=== PATIENT | female | born 1980 | race Caucasian/White ===

== ENCOUNTER 2019-12-12 21:55 | Inpatient (IN) ==
[2019-12-12] MEDS ORDERED: PENICILLIN G POTASSIUM 3 MU in DEXTROSE 5% 100 ML IV PRN (22:14)
[2019-12-12] MEDS ORDERED: PENICILLIN G POTASSIUM 6 MU in DEXTROSE 5% 250 ML IV STA (22:14)
[2019-12-12] MEDS ORDERED: OXYTOCIN 30 UNITS/500 ML BAG IV PRN (22:14)
[2019-12-12] MEDS: LACTATED RINGER'S 1,000 ML IV PRN (22:40)
[2019-12-12 22:47] LABS: Hematocrit (blood only) 31.4 % (37-47); Hemoglobin 10.8 g/dL (12.0-16.0); Mean Corpuscular Hemoglobin 29.7 pg (25-34); Mean Corpuscular Volume 86.3 fL (80-100); Mean Platelet Volume 9.9 fL (7.4-10.4); Platelet Count 204 K/uL (130-400); RDW Coefficient of Variation 13.1 % (11.5-14.5); RDW Standard Deviation 41.6 fL (36.4-46.3); Red Blood Count 3.64 M/uL (4.2-5.4); White Blood Count 7.71 K/uL (4.8-10.8)
[2019-12-12 22:49] LABS: Mean Corpuscular Hgb Conc 34.4 g/dL (32-36)
[2019-12-12] MEDS ORDERED: miSOPROStoL 50 MCG TAB PO ONE (22:55)
[2019-12-12] MEDS ORDERED: ePHEDrine sulfate 50 MG/ML AMP ONE (23:33)
[2019-12-12] MEDS ORDERED: fentaNYL 2MCG/ML ROPIV 1.25MG/ML 100 ML BAG EPI ONE (23:33)
[2019-12-12] MEDS ORDERED: BUPIVACAINE 0.25% 30 ML VIAL ONE (23:33)
[2019-12-12] MEDS ORDERED: fentaNYL citrate 100 MCG/2 ML VIAL ONE (23:33)
[2019-12-13] MEDS ORDERED: NALOXONE HCL 1 MG in SODIUM CHLORIDE 0.9% 1000ML 1,000 ML IV PRN (00:06)
[2019-12-13] MEDS ORDERED: NALOXONE HCL 0.4 MG/1 ML VIAL/CARP IV PRN (00:06)
[2019-12-13] MEDS ORDERED: ePHEDrine sulfate 50 MG/ML AMP IV PRN (00:06)
[2019-12-13] MEDS ORDERED: DiphenhydrAMINE HCL 50 MG/ML VIAL IV PRN (00:06)
[2019-12-13] MEDS ORDERED: ONDANSETRON INJ 2 MG/ML 2 ML VIAL IV PRN (00:06)
[2019-12-13] MEDS ORDERED: fentaNYL 2MCG/ML ROPIV 1.25MG/ML 100 ML BAG EPI PRN (00:06)
--- NOTE | 2019-12-13 00:09 | Anesthesiology Consultation ---
Date of Service December 13, 2019 Covid 19 negative on 12/01/19. Assessment & Plan Chart Review Chart Review: Patient NOT seen in Pre Admission Testing and Acceptable Risk for Labor Epidural Consults Requested none ASA ASA2 Proposed Anesthesia Anesthesia Type: Labor Epidural and CSE Risk / Benefits Reviewed With: PT / POA / Parent / Guardian, Accepts Plan and Informed Consent Obtained History Height/Weight Height: 5 ft 9 in Weight: 83.461 kg Allergies Allergy/AdvReac Type Severity Reaction Status Date / Time acetaminophen Allergy Mild VOMITING Verified 12/15/15 09:25 propoxyphene Allergy Mild Rash Verified 12/12/19 22:14 quetiapine Allergy Mild DIFF Verified 10/23/13 08:55 BREATHING venlafaxine [From Effexor] Allergy Rash Verified 12/12/19 22:14 Medications Home Medications Medication Instructions Recorded Confirmed Last Taken Multivit/Min/Iron/Fol Ac/Pren 1 tab PO DAILY #0 tab 10/21/13 12/12/19 12/12/19 ( Vitamin) BUPRENORPHINE HCL (SUBUTEX) 8 mg SUBLINGUAL BID #1 12/17/15 12/12/19 12/12/19 16:30 biotin 1 mg PO DAILY 12/12/19 12/12/19 12/12/19 omega-3 fatty acids [Fish Oil] 500 mg PO DAILY 12/12/19 12/12/19 12/12/19 Active Medications Generic Name Dose Route Start Last Admin Trade Name Freq PRN Reason Stop Dose Admin Lactated Ringer's 1,000 mls @ 125 mls/hr 12/12/19 22:14 12/12/19 23:30 Lr IV 12/14/19 22:13 999 mls/hr .Q8H PRN Infusion L&D Protocol Protocol NPO Date Last Intake of Fluids: 12/12/19 Time Last Intake of Fluids: 23:00 Date Last Intake of Solids: 12/12/19 Time Last Intake of Solids: 10:00 Past Medical History Medical History Spontaneous vaginal delivery 07/2001, 09/2002, 09/2013, 10/2014, 11/2015 Exercise / Class Metabolic Activity II 4-5 Yardwork/Stairs/Walk up hill Past Surgical History Surgical History H/O dilation and curettage 2007, 2008 Past Anesthesia History No Hx of Anesthesia Complications and No Family Hx of Anesthesia Complications History of PONV No Hx of PONV and No Hx of Motion Sickness Social History Smoking Status: Former smoker Hx Alcohol Use: No Hx Substance Use: Yes substance use type: other Substance Use Type Other:: subutex Review of Systems no chest pain or sob Physical Exam Vital Signs Last Vital Signs Temp 36.7 C 12/12/19 22:17 Pulse 87 12/13/19 00:04 Resp 18 12/12/19 22:17 BP 120/73 12/12/19 22:57 Pulse Ox 100 12/13/19 00:04 ENMT Mouth: no TMJ abnormality Thyromental Distance: > or= 3.5 Finger Breadths Mallampati Class: II Neck normal visual inspection Respiratory normal respiratory effort Auscultation: lungs clear to auscultation bilaterally Cardiovascular Rate/Rhythm: regular rate and regular rhythm Musculoskeletal Spine: normal cervical ROM Neurologic moves all extremities Psychiatric Orientation: alert and oriented x 3 Testing Laboratory Results 12/12/19 22:35
[2019-12-13] MEDS: LACTATED RINGER'S 1,000 ML IV PRN (00:30)
[2019-12-13] MEDS ORDERED: OXYTOCIN 30 UNITS/500 ML BAG IV PRN (03:04)
[2019-12-13] MEDS ORDERED: OXYCODONE/ACETAMINOPHEN 5mg/325mg TAB PO PRN (03:04)
[2019-12-13] MEDS ORDERED: DIPHTHERIA/TETANUS/PERTUSSIS 0.5 ML SYR/VIAL IM ONE (03:04)
[2019-12-13] MEDS ORDERED: BENZOCAINE 20% AER SPR 82.5 GM CAN EXT PRN (03:04)
[2019-12-13] MEDS ORDERED: ACETAMINOPHEN 325 MG TAB PO PRN (03:04)
[2019-12-13] MEDS ORDERED: SUPERCREAM 0.870% 15 GM JAR EXT PRN (03:04)
[2019-12-13] MEDS ORDERED: ACETAMINOPHEN W/CODEINE #3 1 TAB PO PRN (03:04)
[2019-12-13] MEDS ORDERED: miSOPROStoL 200 MCG TAB PR ONE (03:04)
[2019-12-13] MEDS ORDERED: HYDROCORTISONE ACETATE 25 MG SUPP PR PRN (03:04)
[2019-12-13] MEDS ORDERED: bisacodyL 10 MG SUPP PR PRN (03:04)
--- NOTE | 2019-12-13 03:36 | Operative Report (OR) ---
DATE OF OPERATION: 12/13/2019 DELIVERY NOTE She is a 10, para 7, blood type is O positive, group B strep positive. Due date is 12/12/2019. She was admitted with tino rupture of membranes. After she was admitted, she was started on prophylactic antibiotics for group B strep, was also given 50 mcg of Cytotec p.o. She went into labor with 1 dose of Cytotec receiving epidural for pain relief. She then went to an anterior lip. I held back the lip. She pushed the head beyond the lip and then with about 4 pushes, delivered a live female via direct occiput anterior position over an intact perineum. was suctioned through the mouth and the nose. There was a nuchal cord which was reduced over the head. Body was delivered without difficulty. Cord was allowed to pulse for 1 minute, then clamped and cut by the father. Cord blood was taken. With IV Pitocin running, the placenta was removed intact. Following this, we added 800 mcg of rectal Cytotec to secure hemostasis in this patient that had had 7 children. Estimated blood loss was only 100 mL. Perineum was intact without any lacerations and the patient tolerated the procedure well. Apgars were deferred to the nurses. I attest to the content of the Intraoperative Record and any orders documented therein. Any exception s are noted below.
[2019-12-13] MEDS: FERROUS SULFATE 325 MG TAB PO SCH (09:04)
[2019-12-13] MEDS: DOCUSATE SODIUM 100 MG CAP PO SCH ×2 (09:04→20:16)
[2019-12-13] MEDS: IBUPROFEN 600 MG TAB PO PRN ×2 (09:04→17:21)
[2019-12-13] MEDS: PRENATAL VITAMIN 1 TAB PO SCH (09:04)
[2019-12-13] MEDS: buprenorphine HCL 8 MG SUBL SL SCH ×2 (09:16→17:21)
--- NOTE | 2019-12-13 18:09 | Anesthesiology Progress Note ---
Date of Service December 13, 2019 Anesthesia Post Procedure Vital Signs Vital Signs: Temp Pulse Pulse Resp BP BP BP 12/13/19 17:15 36.5 C 75 18 117/76 12/13/19 15:20 36.5 C 77 16 106/64 12/13/19 13:15 36.5 C 78 21 122/77 12/13/19 07:45 36.7 C 79 19 105/69 12/13/19 05:20 36.8 C 18 123/65 12/13/19 05:03 99 H 123/65 12/13/19 04:48 85 119/59 L 12/13/19 04:33 83 104/55 L 12/13/19 04:18 86 108/57 L 12/13/19 04:03 83 111/70 12/13/19 04:00 36.8 C 18 12/13/19 03:53 81 108/57 L 12/13/19 03:18 89 129/63 12/13/19 03:03 84 109/59 L 12/13/19 02:59 92 H 12/13/19 02:54 88 12/13/19 02:51 18 12/13/19 02:49 111 H 12/13/19 02:48 92 H 12/13/19 02:44 89 12/13/19 02:39 106 H 12/13/19 02:34 100 H 12/13/19 02:32 102 H 111/57 L 12/13/19 02:30 18 12/13/19 02:29 112 H 12/13/19 02:24 88 12/13/19 02:19 76 12/13/19 02:17 78 106/61 12/13/19 02:14 78 12/13/19 02:09 78 12/13/19 02:04 80 12/13/19 02:02 74 100/58 L 12/13/19 02:00 36.8 C 16 12/13/19 01:59 88 12/13/19 01:54 71 12/13/19 01:49 68 12/13/19 01:48 69 89/52 L 12/13/19 01:44 70 12/13/19 01:40 81 121/56 L 12/13/19 01:39 81 12/13/19 01:37 67 12/13/19 01:34 65 12/13/19 01:33 65 80/48 L 12/13/19 01:32 65 12/13/19 01:30 16 12/13/19 01:29 67 12/13/19 01:25 67 12/13/19 01:24 69 12/13/19 01:22 72 85/53 L 12/13/19 01:19 74 12/13/19 01:18 69 85/48 L 12/13/19 01:14 67 12/13/19 01:09 68 12/13/19 01:04 75 12/13/19 01:01 78 96/55 L 12/13/19 01:00 16 12/13/19 00:59 72 90/57 L 12/13/19 00:57 73 96/57 L 12/13/19 00:55 76 91/52 L 12/13/19 00:54 77 12/13/19 00:53 75 92/56 L 12/13/19 00:51 76 91/55 L 12/13/19 00:49 73 93/51 L 12/13/19 00:47 77 97/54 L 12/13/19 00:45 77 18 101/56 L 12/13/19 00:44 83 12/13/19 00:43 75 102/58 L 12/13/19 00:41 93 H 104/68 12/13/19 00:39 95 H 128/71 12/13/19 00:37 86 96/55 L 12/13/19 00:35 77 98/52 L 12/13/19 00:33 83 107/55 L 12/13/19 00:31 88 101/56 L 12/13/19 00:29 86 12/13/19 00:27 160 H 127/70 12/13/19 00:25 94 H 120/82 12/13/19 00:24 97 H 12/13/19 00:23 100 H 117/78 12/13/19 00:21 219 H 12/13/19 00:19 124 H 12/13/19 00:16 106 H 12/13/19 00:14 97 H 12/13/19 00:11 93 H 12/13/19 00:09 84 12/13/19 00:04 87 12/13/19 00:00 36.7 C 18 12/12/19 23:59 73 08/16/20 23:54 73 12/12/19 23:49 80 12/12/19 23:44 76 12/12/19 22:57 75 120/73 12/12/19 22:17 36.7 C 18 116/71 12/12/19 21:59 36.7 C 18 116/71 Pulse Ox 12/13/19 17:15 12/13/19 15:20 98 12/13/19 13:15 98 12/13/19 07:45 96 12/13/19 05:20 12/13/19 05:03 12/13/19 04:48 12/13/19 04:33 12/13/19 04:18 12/13/19 04:03 12/13/19 04:00 12/13/19 03:53 12/13/19 03:18 12/13/19 03:03 12/13/19 02:59 99 12/13/19 02:54 100 12/13/19 02:51 12/13/19 02:49 93 12/13/19 02:48 92 12/13/19 02:44 100 12/13/19 02:39 99 12/13/19 02:34 100 12/13/19 02:32 12/13/19 02:30 12/13/19 02:29 100 12/13/19 02:24 100 12/13/19 02:19 99 12/13/19 02:17 12/13/19 02:14 97 12/13/19 02:09 98 12/13/19 02:04 98 12/13/19 02:02 12/13/19 02:00 12/13/19 01:59 100 12/13/19 01:54 96 12/13/19 01:49 96 12/13/19 01:48 12/13/19 01:44 97 12/13/19 01:40 12/13/19 01:39 98 12/13/19 01:37 94 12/13/19 01:34 95 12/13/19 01:33 12/13/19 01:32 94 12/13/19 01:30 12/13/19 01:29 95 12/13/19 01:25 94 12/13/19 01:24 96 12/13/19 01:22 12/13/19 01:19 97 08/17/20 01:18 12/13/19 01:14 95 12/13/19 01:09 95 12/13/19 01:04 97 12/13/19 01:01 12/13/19 01:00 12/13/19 00:59 97 12/13/19 00:57 12/13/19 00:55 12/13/19 00:54 97 12/13/19 00:53 12/13/19 00:51 12/13/19 00:49 98 12/13/19 00:47 12/13/19 00:45 12/13/19 00:44 99 12/13/19 00:43 12/13/19 00:41 12/13/19 00:39 99 12/13/19 00:37 12/13/19 00:35 98 12/13/19 00:33 12/13/19 00:31 12/13/19 00:29 100 12/13/19 00:27 12/13/19 00:25 12/13/19 00:24 100 12/13/19 00:23 12/13/19 00:21 84 L 12/13/19 00:19 75 L 12/13/19 00:16 88 L 12/13/19 00:14 99 12/13/19 00:11 94 12/13/19 00:09 100 12/13/19 00:04 100 12/13/19 00:00 12/12/19 23:59 100 12/12/19 23:54 100 12/12/19 23:49 100 12/12/19 23:44 100 12/12/19 22:57 12/12/19 22:17 12/12/19 21:59 Pain Intensity Lower Medial Back: Pain Intensity: 5 Transfer of Care Handoff Completed per policy Notes Mental Status: alert / awake / arousable and participated in evaluation Patient Amnestic to Procedure: Yes Nausea / Vomiting: adequately controlled Pain: adequately controlled Airway Patency, RR, SpO2: stable & adequate BP & HR: stable & adequate Hydration State: stable & adequate Anesthetic Complications: no major complications apparent and Pt Satisfied with anesthetic care
[2019-12-14 05:51] LABS: Hematocrit (blood only) 30.3 % (37-47); Hemoglobin 10.8 g/dL (12.0-16.0); Mean Corpuscular Hgb Conc 35.6 g/dL (32-36); Mean Corpuscular Volume 87.1 fL (80-100); Mean Platelet Volume 10.2 fL (7.4-10.4); Platelet Count 207 K/uL (130-400); RDW Coefficient of Variation 13.2 % (11.5-14.5); RDW Standard Deviation 42.1 fL (36.4-46.3); Red Blood Count 3.48 M/uL (4.2-5.4); White Blood Count 5.67 K/uL (4.8-10.8)
[2019-12-14] MEDS: IBUPROFEN 600 MG TAB PO PRN ×4 (06:48→20:41)
[2019-12-14] MEDS: buprenorphine HCL 8 MG SUBL SL SCH ×2 (08:11→16:13)
[2019-12-14] MEDS: DOCUSATE SODIUM 100 MG CAP PO SCH ×2 (08:11→20:41)
[2019-12-14] MEDS: FERROUS SULFATE 325 MG TAB PO SCH (08:11)
[2019-12-14] MEDS: PRENATAL VITAMIN 1 TAB PO SCH (08:11)
--- NOTE | 2019-12-14 08:49 | Obstetrical Progress Note ---
Date of Service December 14, 2019 Assessment & Plan (1) Normal course: PPD #1 pt doing well anticipate disch tomorrow Subjective Ambulation: ambulating normally Voiding: no voiding problems Passing Gas:: Yes Diet Tolerance:: regular diet Lochia:: Small Feeding Type:: breast feeding Review of Systems All systems reviewed & are unremarkable except as noted in HPI & below Physical Exam Constitutional WD/WN, vitals as above well developed and well nourished Eyes PERRL, conjunctivae normal, anicteric sclerae Neck trachea midline, no thyromegaly Respiratory normal respiratory effort, lungs clear to auscultation Auscultation: no crackles, no rales and no wheezes Cardiovascular RRR, no murmur, no edema Gastrointestinal (Abdomen) normal bowel sounds, soft, nontender, no hepatosplenomegaly Uterus is below umbilicus Musculoskeletal no cyanosis or clubbing, extremities motor strength 5/5 Skin no rashes, warm and dry Neurologic patellar DTR's 2+ bilat, sensation intact Psychiatric A+Ox3, euthymic affect Genitourinary normal external appearance Results & Data ([facility]) Vital Signs (Past 12 Hours) Vital Signs Temp Pulse Resp BP Pulse Ox 12/13/19 23:00 36.7 C 69 20 123/78 100
[2019-12-14] MEDS ORDERED: bisacodyL 5 MG TABEC PO SCH (20:00)
[2019-12-15] MEDS: IBUPROFEN 600 MG TAB PO PRN ×3 (00:27→12:23)
[2019-12-15 06:39] LABS: Hematocrit (blood only) 31.8 % (37-47); Hemoglobin 10.9 g/dL (12.0-16.0)
[2019-12-15] MEDS: buprenorphine HCL 8 MG SUBL SL SCH (08:31)
[2019-12-15] MEDS: DOCUSATE SODIUM 100 MG CAP PO SCH (08:31)
[2019-12-15] MEDS: PRENATAL VITAMIN 1 TAB PO SCH (08:32)
[2019-12-15] MEDS: FERROUS SULFATE 325 MG TAB PO SCH (08:32)
--- NOTE | 2019-12-15 12:43 | Obstetrical Progress Note ---
Date of Service December 15, 2019 Assessment & Plan Admission and Anticipated Discharge Date Admission Date: December 12, 2019 Subjective Patient is seen and examined. She feels well, no complaints. Ambulating without dizziness Voiding without difficulty Tolerating regular diet with out N&V Bleeding is minimal No fever/ chills/ CP/ SOB/ N&V/ Leg pain Bottle feeding without problems Vital Signs Temp Pulse Resp BP Pulse Ox 12/15/19 07:30 36.8 C 69 18 106/62 96 12/14/19 23:40 36.4 C L 80 16 115/74 99 12/14/19 19:25 36.4 C L 82 16 108/74 98 12/14/19 16:15 36.5 C 71 18 112/75 97 Lab Results 12/12/19 12/12/19 12/14/19 Range/Units 22:16 22:35 05:16 WBC 7.71 5.67 (4.8-10.8) K/uL RBC 3.64 L 3.48 L (4.2-5.4) M/uL Hgb 10.8 L 10.8 L (12.0-16.0) g/dL Hct 31.4 L 30.3 L (37-47) % MCV 86.3 87.1 (80-100) fL MCH 29.7 31.0 (25-34) pg MCHC 34.4 35.6 (32-36) g/dL RDW Std Deviation 41.6 42.1 (36.4-46.3) fL RDW Coeff of Beulah 13.1 13.2 (11.5-14.5) % Plt Count 204 207 (130-400) K/uL MPV 9.9 10.2 (7.4-10.4) fL Amniotic Protein POS 12/15/19 Range/Units 06:07 WBC (4.8-10.8) K/uL RBC (4.2-5.4) M/uL Hgb 10.9 L (12.0-16.0) g/dL Hct 31.8 L (37-47) % MCV (80-100) fL MCH (25-34) pg MCHC (32-36) g/dL RDW Std Deviation (36.4-46.3) fL RDW Coeff of Beulah (11.5-14.5) % Plt Count (130-400) K/uL MPV (7.4-10.4) fL Amniotic Protein PE: General: Alert, orientedx3, NAD Abd: soft, NT, fundus firm, below Umbilicus Perineum intact, Lochia rubra minimal Ext; NT, symmetric BL edema, Homans sign neg/ neg AP: 39 yo s/p , ppd# 2 VSS Afebrile doing well Discussed when to call All questions were answered D/C home , f/u in office Results & Data ([facility]) Vital Signs (Past 12 Hours) Vital Signs Temp Pulse Resp BP Pulse Ox 12/15/19 07:30 36.8 C 69 18 106/62 96
== END 2019-12-15 15:05 | disposition home or self-care (01) | DRG 807 ==
LOC: OPB 21:55 → 4S1 22:02 → 4S2 12-13 05:21

== ENCOUNTER 2021-12-26 14:11 | Inpatient (IN) ==
[2021-12-27] MEDS ORDERED: miSOPROStoL 25 MCG TAB PV ONE (10:12)
[2021-12-27] MEDS ORDERED: LIDOCAINE 1% LOCAL 20 ML VIAL INFIL PRN (10:12)
[2021-12-27] MEDS ORDERED: OXYTOCIN 30 UNITS/500 ML BAG IV PRN ×2 (10:12→14:04)
--- NOTE | 2021-12-27 10:24 | History & Physical Report ---
Date of Service December 27, 2021 Assessment & Plan (1) Advanced maternal age (AMA) in : Plan: Induction of labor with Cytotec Admission and Anticipated Discharge Date Admission Date: December 27, 2021 History of Present Illness Chief Complaint: induction of labor Primary Care Provider: Sonny Lord MD 41 F [id number] at 39.5 weeks admitted for induction of labor for advanced maternal age. GBS is positive. Covid is negative. Allergies Allergy/AdvReac Type Severity Reaction Status Date / Time propoxyphene Allergy Mild Rash Verified 12/12/19 22:14 quetiapine Allergy Mild DIFF Verified 10/23/13 08:55 BREATHING venlafaxine [From Effexor] Allergy Rash Verified 12/12/19 22:14 Home Medications Medication Instructions Recorded Confirmed Type BUPRENORPHINE HCL (SUBUTEX) 8 mg sublingual BID ##1 12/17/15 12/27/21 Rx biotin 1 mg capsule 1 mg PO DAILY 12/12/19 12/27/21 History prenat.vits,karthik,mgt-ljeq-ixmhx 1 tab PO DAILY 12/21/21 12/27/21 History Patient History Medical History Buprenorphine maintenance treatment affecting Spontaneous vaginal delivery 07/2001, 09/2002, 09/2013, 10/2014, 11/2015, 2017 Surgical History H/O dilation and curettage 2007, 2008 Social History Smoking Status: Never smoker Second Hand Exposure: No; Do You Dip or Chew Tobacco: No; Tobacco Cessation Education Requested by Patient: No Hx Alcohol Use: No Hx Substance Use: Yes Prescribed Medications: Former Misuse of Rx Meds and Painkillers Last Used Substance Other:: Takes Subutex daily Substance Use Type Other:: Subutex 16mg daily Preferred Language: Guamanian Communication Ability: Effective Hearing Ability: Hard of Hearing Director Product Required: No Beliefs That Will Affect Care: None marital status: Current Living Situation: Spouse Current Living Situation Comment: Lebron- , Radha- 2y/o current occupational status: unemployed current occupation: Homemaker Other Information That Helps Us Care for You: No Feels Safe at Home: Yes Safety Concerns: Feels Safe At This Time Gender Identity: Female Assistive Devices: None OB History grand multipara [employer] SOLUTION ARCHITECT History neg Review of Systems All systems reviewed & are unremarkable except as noted in HPI & below Physical Exam Constitutional: WD/WN, vitals as above Eyes: PERRL, conjunctivae normal, anicteric sclerae Respiratory: normal respiratory effort, lungs clear to auscultation Cardiovascular: RRR, no murmur, no edema Musculoskeletal: Extremities: extremities normal to inspection Skin: no rashes, warm and dry Neurologic: patellar DTR's 2+ bilat, sensation intact Psychiatric: A+Ox3, euthymic affect Genitourinary: no vaginal lesions, no adnexal mass OB Exam Abdomen: + fundal height and + vertex Manual OB Exam: + cervical dilation 2 cm, + cervical effacement 50% and + station high OB Exam Monitor Tracing: + external FHT monitor used, + external uterine monitor used, + category I and + normal FHT variability Results & Data ([place]) Vital Signs (Past 12 Hours) Vital Signs Temp Pulse Resp BP 12/27/21 08:26 76 120/73 12/27/21 08:45 37.1 C 18 Code Status & VTE Plan VTE Prophylaxis Plan VTE Prophylaxis will be ordered: No Monitoring External Monitor Cat 1
[2021-12-27 10:29] LABS: Hematocrit (blood only) 31.3 % (34.1-44.9); Hemoglobin 10.9 g/dl (12.0-16.0); Mean Corpuscular Hemoglobin 30.3 pg (25.0-34.0); Mean Corpuscular Hgb Conc 34.8 g/dL (32.0-36.0); Mean Corpuscular Volume 86.9 fL (80.0-100.0); Mean Platelet Volume 10.3 fL (9.4-12.3); Platelet Count 186 K/uL (130-400); RDW Coefficient of Variation 12.3 % (11.5-14.5); RDW Standard Deviation 39.4 fL (36.4-46.3); White Blood Count 4.19 K/ul (4.8-10.8)
[2021-12-27] MEDS ORDERED: PENICILLIN G POTASSIUM 6 MU in DEXTROSE 5% 250 ML IV ONE (10:30)
--- NOTE | 2021-12-27 10:32 | Labor Progress Brief Note ---
Date of Service December 27, 2021 Assessment & Plan Admission and Anticipated Discharge Date Admission Date: December 27, 2021 Physical Exam Genitourinary: OB Exam Monitor Tracing: + external FHT monitor used, + external uterine monitor used, + category I and + normal FHT variability Cytotec 25 mcg placed vaginally Results & Data ([facility]) Vital Signs (Past 12 Hours) Vital Signs Temp Pulse Resp BP 12/27/21 08:26 76 120/73 12/27/21 08:45 37.1 C 18
[2021-12-27] MEDS: LACTATED RINGER'S 1,000 ML IV PRN ×4 (10:35→22:23)
--- NOTE | 2021-12-27 14:20 | Labor Progress Brief Note ---
Date of Service December 27, 2021 Assessment & Plan Admission and Anticipated Discharge Date Admission Date: December 27, 2021 Physical Exam Genitourinary: OB Exam Abdomen: + estimated weight (7.5 lbs.) Manual OB Exam: + cervical dilation 4 cm, + cervical effacement 80% and + station -2 OB Exam Monitor Tracing: + external FHT monitor used, + external uterine monitor used, + category I and + normal FHT variability will start Oxytocin to augment ctx Results & Data ([facility]) Vital Signs (Past 12 Hours) Vital Signs Temp Pulse Resp BP Pulse Ox 12/27/21 14:12 81 99 12/27/21 14:00 20 12/27/21 14:00 20 12/27/21 14:07 81 97 12/27/21 14:04 85 94 12/27/21 14:02 86 96 12/27/21 13:57 79 98 12/27/21 13:43 74 97 12/27/21 13:38 73 97 12/27/21 13:33 71 97 12/27/21 13:28 74 99 12/27/21 13:23 74 98 12/27/21 13:18 81 98 12/27/21 13:13 83 97 12/27/21 13:08 69 97 12/27/21 13:03 76 99 12/27/21 12:58 80 97 12/27/21 12:53 73 98 12/27/21 12:48 76 98 12/27/21 12:43 73 98 12/27/21 12:38 77 100 12/27/21 11:57 18 12/27/21 11:57 36.6 C 18 12/27/21 11:32 71 96/59 L 12/27/21 10:35 74 107/59 L 12/27/21 08:26 76 120/73 12/27/21 08:45 37.1 C 18
[2021-12-27] MEDS: buprenorphine HCL 8 MG SUBL SL SCH (14:33)
[2021-12-27] MEDS: PENICILLIN G POTASSIUM 3 MU in DEXTROSE 5% 100 ML IV PRN ×3 (14:57→22:25)
[2021-12-27] MEDS ORDERED: fentaNYL citrate 100 MCG/2 ML VIAL ONE (15:26)
[2021-12-27] MEDS ORDERED: LIDOCAINE 2%/EPINEPHRINE 1:200,000 20 ML SDV ONE (15:26)
[2021-12-27] MEDS ORDERED: ePHEDrine sulfate 50 MG/ML AMP ONE (15:26)
[2021-12-27] MEDS ORDERED: BUPIVACAINE 0.25% 30 ML VIAL ONE (15:26)
[2021-12-27] MEDS ORDERED: SODIUM CHLORIDE 0.9% INJ 10 ML VIAL ONE (15:26)
[2021-12-27] MEDS ORDERED: fentaNYL 2MCG/ML ROPIVACAINE 1.25MG/ML 100 ML BAG EPI ONE (15:27)
--- NOTE | 2021-12-27 16:42 | Anesthesiology Consultation ---
Date of Service December 27, 2021 Assessment & Plan Chart Review Chart Review: Acceptable Risk for Surgery Consults Requested none History Height/Weight Height: 5 ft 9 in Weight: 93.44 kg Allergies Allergy/AdvReac Type Severity Reaction Status Date / Time propoxyphene Allergy Mild Rash Verified 12/12/19 22:14 quetiapine Allergy Mild DIFF Verified 10/23/13 08:55 BREATHING venlafaxine [From Effexor] Allergy Rash Verified 12/12/19 22:14 Medications Home Medications Medication Instructions Recorded Confirmed Last Taken BUPRENORPHINE HCL (SUBUTEX) 8 mg sublingual BID ##1 12/17/15 12/27/21 12/27/21 06:00 biotin 1 mg capsule 1 mg PO DAILY 12/12/19 12/27/21 12/26/21 08:00 prenat.vits,karthik,occ-nrxi-vefox 1 tab PO DAILY 12/21/21 12/27/21 12/27/21 06:00 Active Medications Generic Name Dose Route Start Last Admin Trade Name Andreaq PRN Reason Stop Dose Admin Buprenorphine HCl 8 mg 12/27/21 14:30 12/27/21 14:33 Buprenorphine Hcl 8 Mg Subl SL 01/26/22 14:29 8 mg BID@0600,1430 ARCHIE Administration Lactated Ringer's 1,000 mls @ 125 mls/hr 12/27/21 10:12 12/27/21 15:58 Lr IV 12/29/21 10:11 999 mls/hr .Q8H PRN Administration L&D Protocol Protocol Penicillin G Potassium 3 mu/ 106 mls @ 100 mls/hr 12/27/21 13:12 12/27/21 14:57 Dextrose IV 01/06/22 13:11 100 mls/hr Q4H PRN Administration GBS(+) Until Delivery Oxytocin 30 units in 500 mls @ 4 mls/hr 12/27/21 14:04 12/27/21 16:00 Pitocin IV 12/29/21 14:03 0.24 units/hr .Q24H PRN 4 mls/hr Labor Induction/Augmentation Titration Protocol 0.24 UNITS/HR Past Medical History Medical History Buprenorphine maintenance treatment affecting Spontaneous vaginal delivery 07/2001, 09/2002, 09/2013, 10/2014, 11/2015, 2018 Past Surgical History Surgical History H/O dilation and curettage 2007, 2008 Social History Smoking Status: Never smoker Do You Dip or Chew Tobacco: No Hx Alcohol Use: No Hx Substance Use: Yes substance use type: prescription drug Substance Use Type Other:: Subutex 16mg daily Last Used Substance Other:: Takes Subutex daily Physical Exam Vital Signs Last Vital Signs Temp 36.8 C 12/27/21 15:21 Pulse 70 12/27/21 16:39 Resp 16 12/27/21 16:33 BP 113/71 12/27/21 16:39 Pulse Ox 96 12/27/21 16:38 Testing Laboratory Results 12/27/21 10:17 Blood Type O Positive 12/27/21 10:17 Antibody Screen NEGATIVE 12/27/21 10:17
[2021-12-27] MEDS ORDERED: NALOXONE HCL 1 MG in SODIUM CHLORIDE 0.9% 1000ML 1,000 ML IV PRN (16:44)
[2021-12-27] MEDS ORDERED: ePHEDrine sulfate 50 MG/ML AMP IV PRN (16:44)
[2021-12-27] MEDS ORDERED: diphenhydrAMINE 50 MG/ML VIAL IV PRN (16:44)
[2021-12-27] MEDS ORDERED: fentaNYL 2MCG/ML ROPIVACAINE 1.25MG/ML 100 ML BAG EPI PRN (16:44)
[2021-12-27] MEDS ORDERED: NALBUPHINE HCL INJ 10 MG/ML AMP IV PRN (16:44)
[2021-12-27] MEDS ORDERED: NALOXONE HCL 0.4 MG/1 ML VIAL/CARP IV PRN (16:44)
[2021-12-27] MEDS: ONDANSETRON INJ 2 MG/ML 2 ML VIAL IV PRN ×2 (17:28→23:34)
--- NOTE | 2021-12-27 17:31 | Labor Progress Brief Note ---
Date of Service December 27, 2021 Assessment & Plan Admission and Anticipated Discharge Date Admission Date: December 27, 2021 Physical Exam Genitourinary: Manual OB Exam: + cervical dilation 4 cm, + cervical effacement 80% and + station -2 Results & Data ([facility]) Vital Signs (Past 12 Hours) Vital Signs Temp Pulse Resp BP Pulse Ox 12/27/21 17:28 65 98 12/27/21 17:23 71 113/64 100 12/27/21 17:18 56 L 98 12/27/21 17:00 36.7 C 12/27/21 17:13 68 98 12/27/21 17:08 67 98 12/27/21 17:06 70 127/72 12/27/21 17:03 73 96 12/27/21 16:58 60 97 12/27/21 16:53 78 97 12/27/21 16:49 78 111/55 L 12/27/21 16:48 63 96 12/27/21 16:45 57 L 111/65 12/27/21 16:43 63 95 12/27/21 16:38 70 96 12/27/21 16:39 70 113/71 12/27/21 16:37 60 111/70 12/27/21 16:35 88 108/69 12/27/21 16:33 71 16 108/60 96 12/27/21 16:24 18 12/27/21 16:24 18 12/27/21 16:31 67 113/67 12/27/21 16:29 78 107/62 12/27/21 16:28 77 18 96 12/27/21 16:27 72 118/73 12/27/21 16:25 80 132/63 12/27/21 16:23 96 12/27/21 16:23 77 12/27/21 16:23 74 106/61 12/27/21 16:21 72 18 113/66 12/27/21 16:18 97 12/27/21 16:18 62 12/27/21 16:19 69 18 115/63 12/27/21 16:18 78 126/58 L 12/27/21 16:15 62 131/72 12/27/21 16:13 99 12/27/21 16:13 76 12/27/21 16:13 80 143/81 H 12/27/21 16:11 95 H 140/82 12/27/21 16:08 91 H 100 12/27/21 16:09 93 H 129/87 12/27/21 16:03 87 99 12/27/21 15:59 78 123/74 12/27/21 15:58 76 97 12/27/21 15:53 72 100 12/27/21 15:48 90 98 12/27/21 15:49 85 140/61 12/27/21 15:43 76 97 12/27/21 15:40 73 123/69 12/27/21 15:38 76 97 12/27/21 15:33 79 98 12/27/21 15:29 85 144/64 H 12/27/21 15:28 85 97 12/27/21 15:21 36.8 C 12/27/21 15:23 82 100 12/27/21 15:18 78 98 12/27/21 15:19 76 110/70 12/27/21 15:16 71 91 12/27/21 15:13 68 95 12/27/21 15:11 67 94 12/27/21 15:09 71 128/65 12/27/21 15:08 81 96 12/27/21 15:01 18 12/27/21 15:01 36.6 C 18 12/27/21 15:05 73 93 12/27/21 15:03 74 97 12/27/21 14:59 72 114/67 12/27/21 14:58 78 98 12/27/21 14:52 77 97 12/27/21 14:47 81 97 12/27/21 14:48 77 120/80 12/27/21 14:42 82 96 12/27/21 14:39 78 116/77 12/27/21 14:37 78 96 12/27/21 14:32 78 96 12/27/21 14:30 78 131/73 12/27/21 14:27 79 97 12/27/21 14:22 77 96 12/27/21 14:17 81 97 12/27/21 14:12 81 99 12/27/21 14:00 20 12/27/21 14:00 20 12/27/21 14:07 81 97 12/27/21 14:04 85 94 12/27/21 14:02 86 96 12/27/21 13:57 79 98 09/01/22 13:43 74 97 12/27/21 13:38 73 97 12/27/21 13:33 71 97 12/27/21 13:28 74 99 12/27/21 13:23 74 98 12/27/21 13:18 81 98 12/27/21 13:13 83 97 12/27/21 13:08 69 97 12/27/21 13:03 76 99 12/27/21 12:58 80 97 12/27/21 12:53 73 98 12/27/21 12:48 76 98 12/27/21 12:43 73 98 12/27/21 12:38 77 100 12/27/21 11:57 18 12/27/21 11:57 36.6 C 18 12/27/21 11:32 71 96/59 L 12/27/21 10:35 74 107/59 L 12/27/21 08:26 76 120/73 12/27/21 08:45 37.1 C 18
[2021-12-27] MEDS ORDERED: buprenorphine HCL 8 MG SUBL SL SCH (21:00)
--- NOTE | 2021-12-27 23:31 | Labor Progress Brief Note ---
Date of Service December 27, 2021 Assessment & Plan Admission and Anticipated Discharge Date Admission Date: December 27, 2021 Physical Exam Genitourinary: Manual OB Exam: + cervical dilation 7 cm, + cervical effacement 90% and + station -1 OB Exam Monitor Tracing: + external FHT monitor used, + external uterine monitor used, + category I and + normal FHT variability Results & Data ([facility]) Vital Signs (Past 12 Hours) Vital Signs Temp Pulse Resp BP Pulse Ox 12/27/21 23:28 85 100 12/27/21 23:23 84 100 12/27/21 23:21 73 119/62 12/27/21 23:18 70 100 12/27/21 23:00 18 12/27/21 23:00 36.7 C 18 12/27/21 23:13 68 100 12/27/21 23:08 73 100 12/27/21 23:07 68 116/66 12/27/21 23:03 67 100 12/27/21 22:58 76 100 12/27/21 22:53 76 100 12/27/21 22:51 69 123/82 12/27/21 22:48 67 100 12/27/21 22:43 63 100 12/27/21 22:30 18 12/27/21 22:30 18 12/27/21 22:00 18 12/27/21 22:00 18 12/27/21 21:30 18 12/27/21 21:30 18 12/27/21 22:38 72 100 12/27/21 22:37 71 120/79 12/27/21 22:33 83 99 12/27/21 22:28 70 98 12/27/21 22:23 67 98 12/27/21 22:22 74 120/81 12/27/21 22:18 64 98 12/27/21 22:13 68 97 12/27/21 22:08 65 98 12/27/21 22:06 67 124/78 12/27/21 22:03 74 100 12/27/21 21:58 72 100 12/27/21 21:53 66 100 12/27/21 21:51 68 131/82 12/27/21 21:48 68 100 12/27/21 21:43 72 100 12/27/21 21:38 71 100 12/27/21 21:37 62 132/78 12/27/21 21:33 63 100 12/27/21 21:28 68 100 12/27/21 21:26 79 91 12/27/21 21:23 69 100 12/27/21 21:22 65 130/80 12/27/21 21:00 18 12/27/21 21:00 18 12/27/21 21:18 68 100 12/27/21 21:13 77 100 12/27/21 21:08 66 100 12/27/21 21:06 64 121/72 12/27/21 21:03 70 100 12/27/21 20:58 69 100 12/27/21 20:53 76 98 12/27/21 20:30 18 12/27/21 20:30 36.9 C 18 12/27/21 20:52 78 124/82 12/27/21 20:48 75 100 12/27/21 20:43 68 97 12/27/21 20:41 75 94 12/27/21 20:38 68 97 12/27/21 20:36 60 112/67 12/27/21 20:33 55 L 98 12/27/21 20:28 61 98 12/27/21 20:23 56 L 99 12/27/21 20:22 57 L 122/66 12/27/21 20:18 76 98 12/27/21 20:13 58 L 99 12/27/21 20:08 58 L 98 12/27/21 20:00 18 12/27/21 20:00 18 12/27/21 20:06 53 L 111/61 12/27/21 20:03 62 97 12/27/21 19:58 56 L 97 12/27/21 19:53 53 L 97 12/27/21 19:51 54 L 104/61 12/27/21 19:30 8 L 12/27/21 19:30 8 L 12/27/21 19:48 57 L 98 12/27/21 19:15 18 12/27/21 19:15 36.7 C 18 12/27/21 19:43 61 98 12/27/21 19:38 62 99 12/27/21 19:36 69 115/74 12/27/21 19:33 72 98 12/27/21 19:28 62 97 12/27/21 19:23 60 98 12/27/21 19:22 61 131/76 12/27/21 19:18 62 99 12/27/21 19:13 67 100 12/27/21 19:08 73 100 12/27/21 19:07 71 135/84 12/27/21 19:03 73 100 12/27/21 18:58 76 100 12/27/21 18:53 78 100 12/27/21 18:52 68 161/88 H 12/27/21 18:48 76 99 12/27/21 18:43 54 L 97 12/27/21 18:38 58 L 97 12/27/21 18:36 60 142/87 H 12/27/21 18:33 58 L 97 12/27/21 18:28 53 L 97 12/27/21 18:23 57 L 97 12/27/21 18:22 55 L 137/81 12/27/21 18:18 56 L 97 12/27/21 18:01 20 12/27/21 18:01 20 12/27/21 18:13 60 97 12/27/21 18:08 63 97 12/27/21 18:07 69 136/83 12/27/21 18:03 70 97 12/27/21 17:58 68 97 12/27/21 17:53 59 L 96 12/27/21 17:51 49 L 111/63 12/27/21 17:48 59 L 93 12/27/21 17:49 59 L 94 12/27/21 17:43 53 L 94 12/27/21 17:38 61 94 12/27/21 17:37 57 L 108/58 L 12/27/21 17:15 18 12/27/21 17:15 18 12/27/21 17:30 20 12/27/21 17:30 20 12/27/21 17:36 67 94 12/27/21 17:33 60 97 12/27/21 17:28 65 98 12/27/21 17:23 71 113/64 100 12/27/21 17:18 56 L 98 12/27/21 17:00 36.7 C 18 12/27/21 17:13 68 98 12/27/21 17:08 67 98 12/27/21 17:06 70 127/72 12/27/21 17:03 73 96 12/27/21 16:58 60 97 12/27/21 16:53 78 97 12/27/21 16:49 78 111/55 L 12/27/21 16:48 63 96 12/27/21 16:45 57 L 18 111/65 12/27/21 16:43 63 95 12/27/21 16:38 70 96 12/27/21 16:39 70 113/71 12/27/21 16:37 60 111/70 12/27/21 16:35 88 108/69 12/27/21 16:33 71 16 108/60 96 12/27/21 16:24 18 12/27/21 16:24 18 12/27/21 16:31 67 113/67 12/27/21 16:29 78 107/62 12/27/21 16:28 77 18 96 12/27/21 16:27 72 118/73 12/27/21 16:25 80 132/63 12/27/21 16:23 96 12/27/21 16:23 77 12/27/21 16:23 74 106/61 12/27/21 16:21 72 18 113/66 12/27/21 16:18 97 12/27/21 16:18 62 12/27/21 16:19 69 18 115/63 12/27/21 16:18 78 126/58 L 12/27/21 16:15 62 131/72 12/27/21 16:13 99 12/27/21 16:13 76 12/27/21 16:13 80 143/81 H 12/27/21 16:11 95 H 140/82 12/27/21 16:08 91 H 100 12/27/21 16:09 93 H 129/87 12/27/21 16:03 87 99 12/27/21 15:59 78 123/74 12/27/21 15:58 76 97 12/27/21 15:53 72 100 12/27/21 15:48 90 98 12/27/21 15:49 85 140/61 12/27/21 15:43 76 97 12/27/21 15:40 73 123/69 12/27/21 15:38 76 97 12/27/21 15:33 79 98 12/27/21 15:29 85 144/64 H 12/27/21 15:28 85 97 09/01/22 15:21 36.8 C 12/27/21 15:23 82 100 12/27/21 15:18 78 98 12/27/21 15:19 76 110/70 12/27/21 15:16 71 91 12/27/21 15:13 68 95 12/27/21 15:11 67 94 12/27/21 15:09 71 128/65 12/27/21 15:08 81 96 12/27/21 15:01 18 12/27/21 15:01 36.6 C 18 12/27/21 15:05 73 93 12/27/21 15:03 74 97 12/27/21 14:59 72 114/67 12/27/21 14:58 78 98 12/27/21 14:52 77 97 12/27/21 14:47 81 97 12/27/21 14:48 77 120/80 12/27/21 14:42 82 96 12/27/21 14:39 78 116/77 12/27/21 14:37 78 96 12/27/21 14:32 78 96 12/27/21 14:30 78 131/73 12/27/21 14:27 79 97 12/27/21 14:22 77 96 12/27/21 14:17 81 97 12/27/21 14:12 81 99 12/27/21 14:00 20 12/27/21 14:00 20 12/27/21 14:07 81 97 12/27/21 14:04 85 94 12/27/21 14:02 86 96 12/27/21 13:57 79 98 12/27/21 13:43 74 97 12/27/21 13:38 73 97 12/27/21 13:33 71 97 12/27/21 13:28 74 99 12/27/21 13:23 74 98 12/27/21 13:18 81 98 12/27/21 13:13 83 97 12/27/21 13:08 69 97 12/27/21 13:03 76 99 12/27/21 12:58 80 97 12/27/21 12:53 73 98 12/27/21 12:48 76 98 12/27/21 12:43 73 98 12/27/21 12:38 77 100 12/27/21 11:57 18 12/27/21 11:57 36.6 C 18 12/27/21 11:32 71 96/59 L
--- NOTE | 2021-12-28 01:22 | Delivery Summary ---
Vaginal Delivery Summary Date of Service December 28, 2021 Vaginal Delivery Summary Delivery Note live male TARUN with nuchal cord x1 reduced at delivery. Apgars 8/9 weight pending. Cord blood obtained followed by spontaneous delivery of intact placenta. No tears. EBL 100 ml. Final sponge and instrument count are correct. Mom and baby stable.
[2021-12-28] MEDS ORDERED: HYDROCORTISONE ACETATE 25 MG SUPP PR PRN (01:31)
[2021-12-28] MEDS ORDERED: DIPHTHERIA/TETANUS/PERTUSSIS 0.5 ML SYR/VIAL IM ONE (01:31)
[2021-12-28] MEDS ORDERED: OXYTOCIN 30 UNITS/500 ML BAG IV PRN (01:31)
[2021-12-28] MEDS ORDERED: bisacodyL 10 MG SUPP PR PRN (01:31)
[2021-12-28] MEDS ORDERED: BENZOCAINE 20% AER SPR 82.5 GM CAN EXT PRN (01:31)
[2021-12-28] MEDS: IBUPROFEN 600 MG TAB PO PRN ×5 (02:53→23:40)
[2021-12-28] MEDS: buprenorphine HCL 8 MG SUBL SL SCH ×2 (06:09→14:27)
[2021-12-28] MEDS: DOCUSATE SODIUM 100 MG CAP PO SCH ×2 (07:20→20:54)
[2021-12-28] MEDS: PRENATAL VITAMIN 1 TAB PO SCH (07:20)
[2021-12-28] MEDS ORDERED: NON-FORMULARY MEDICATION (Biotin 1 mg Capsule) PO SCH (09:00)
[2021-12-28] MEDS ORDERED: NON-FORMULARY MEDICATION (Prenat.Vits,Cal,Min-Iron-Folic Tablet) PO SCH (09:00)
[2021-12-28] MEDS ORDERED: buprenorphine HCL 8 MG SUBL SL SCH (09:00)
--- NOTE | 2021-12-28 09:27 | Anesthesia Procedure Note ---
Date of Service December 28, 2021 Anesthesia Post Epidural Note Vital Signs Vital Signs: Temp Pulse Resp BP Pulse Ox O2 Del Method 98.1 F 71 18 118/77 98 12/28/21 07:12/28/21 07:12/28/21 07:25 12/28/21 07:25 12/28/21 07:12/28/21 07:25 Pain Intensity Abdomen: Pain Intensity: 5 Perineal: Pain Intensity: 7 Notes Mental Status: alert / awake / arousable and participated in evaluation Nausea / Vomiting: adequately controlled Pain: adequately controlled Airway Patency, RR, SpO2: stable & adequate BP & HR: stable & adequate Hydration State: stable & adequate Neuraxial Anesthesia: was administered and sensory block is resolving Anesthetic Complications: no major complications apparent and Pt Satisfied with anesthetic care Epidural: Removed without complications and With tip intact
[2021-12-28] MEDS: ACETAMINOPHEN 325 MG TAB PO PRN ×2 (11:02→20:54)
[2021-12-29] MEDS: ACETAMINOPHEN 325 MG TAB PO PRN (03:09)
[2021-12-29] MEDS: buprenorphine HCL 8 MG SUBL SL SCH ×2 (05:57→14:16)
[2021-12-29 07:11] LABS: Hematocrit (blood only) 30.6 % (34.1-44.9); Hemoglobin 10.3 g/dl (12.0-16.0); Mean Corpuscular Hgb Conc 33.7 g/dL (32.0-36.0); Mean Corpuscular Volume 89.2 fL (80.0-100.0); Mean Platelet Volume 10.2 fL (9.4-12.3); Platelet Count 166 K/uL (130-400); RDW Coefficient of Variation 12.4 % (11.5-14.5); RDW Standard Deviation 39.9 fL (36.4-46.3); Red Blood Count 3.43 M/uL (3.93-5.22); White Blood Count 5.53 K/ul (4.8-10.8)
[2021-12-29] MEDS: DOCUSATE SODIUM 100 MG CAP PO SCH ×2 (07:29→21:19)
[2021-12-29] MEDS: IBUPROFEN 600 MG TAB PO PRN ×4 (07:29→22:48)
[2021-12-29] MEDS: PRENATAL VITAMIN 1 TAB PO SCH (07:29)
--- NOTE | 2021-12-29 09:53 | Obstetrical Progress Note ---
Date of Service December 29, 2021 Subjective Ambulation: ambulating normally Voiding: no voiding problems Passing Gas:: Yes Diet Tolerance:: regular diet Feeding Type:: breast feeding Current Pain Level(1-10): 0 some left sided jaw pain due to dental problems Physical Exam Constitutional WD/WN, vitals as above Gastrointestinal (Abdomen) normal bowel sounds, soft, nontender, no hepatosplenomegaly Musculoskeletal Extremities: extremities normal to inspection Skin no rashes, warm and dry Neurologic patellar DTR's 2+ bilat, sensation intact Psychiatric A+Ox3, euthymic affect Results & Data ([facility]) Vital Signs (Past 12 Hours) Vital Signs Temp Pulse Resp BP Pulse Ox O2 Del Method 12/29/21 07:30 36.4 C L 67 18 113/75 98 Room Air 12/29/21 03:20 36.5 C 67 16 118/79 97 Room Air 12/28/21 23:45 36.4 C L 75 18 119/74 98 Room Air Laboratory Results 12/27/21 12/27/21 12/27/21 08:30 10:17 10:17 WBC 4.19 L RBC 3.60 L Hgb 10.9 L Hct 31.3 L MCV 86.9 MCH 30.3 MCHC 34.8 RDW Std Deviation 39.4 RDW Coeff of Beulah 12.3 Plt Count 186 MPV 10.3 SARS-CoV-2, RNA, NAAT NEGATIVE Blood Type O Positive Antibody Screen NEGATIVE 12/29/21 06:54 WBC 5.53 RBC 3.43 L Hgb 10.3 L Hct 30.6 L MCV 89.2 MCH 30.0 MCHC 33.7 RDW Std Deviation 39.9 RDW Coeff of Beulah 12.4 Plt Count 166 MPV 10.2 SARS-CoV-2, RNA, NAAT Blood Type Antibody Screen
[2021-12-29] MEDS: cephALEXin 500 MG CAP PO SCH ×3 (12:27→21:19)
[2021-12-29] MEDS ORDERED: bisacodyL 5 MG TABEC PO SCH (20:00)
[2021-12-30] MEDS: buprenorphine HCL 8 MG SUBL SL SCH ×2 (05:58→14:25)
[2021-12-30] MEDS: IBUPROFEN 600 MG TAB PO PRN ×3 (06:41→17:11)
[2021-12-30 06:45] LABS: Hematocrit (blood only) 32.8 % (34.1-44.9)
[2021-12-30] MEDS: PRENATAL VITAMIN 1 TAB PO SCH (08:01)
[2021-12-30] MEDS: DOCUSATE SODIUM 100 MG CAP PO SCH (08:01)
[2021-12-30] MEDS: ACETAMINOPHEN 325 MG TAB PO PRN (08:01)
[2021-12-30] MEDS: cephALEXin 500 MG CAP PO SCH ×3 (09:41→17:12)
--- NOTE | 2021-12-30 11:04 | Obstetrical Progress Note ---
Date of Service December 30, 2021 Subjective Ambulation: ambulating normally Voiding: no voiding problems Passing Gas:: Yes Diet Tolerance:: regular diet Feeding Type:: breast feeding Current Pain Level(1-10): 0 doing well. will go to nesting Physical Exam Constitutional WD/WN, vitals as above Gastrointestinal (Abdomen) Inspection/Auscultation: abdomen normal to inspection Abdomen soft and non-tender. fundus firm below U Musculoskeletal Extremities: extremities normal to inspection no edema. neg Ted's Skin no rashes, warm and dry Neurologic patellar DTR's 2+ bilat, sensation intact Results & Data ([facility]) Vital Signs (Past 12 Hours) Vital Signs Temp Pulse Resp BP Pulse Ox O2 Del Method 12/30/21 08:01 36.5 C 75 18 120/80 98 Room Air Laboratory Results Laboratory Results - last 48 hr 12/29/21 12/30/21 06:54 05:54 WBC 5.53 RBC 3.43 L Hgb 10.3 L 11.0 L Hct 30.6 L 32.8 L MCV 89.2 MCH 30.0 MCHC 33.7 RDW Std Deviation 39.9 RDW Coeff of Beulah 12.4 Plt Count 166 MPV 10.2
== END 2021-12-30 19:02 | disposition home or self-care (01) | DRG 807 ==
LOC: 4S1 12-27 08:15 → 4E2 12-28 03:44